=== PATIENT | female | born 1950 | race Two or more races ===

== ENCOUNTER 2022-05-29 14:35 | Emergency (ER) | payer MEDICARE, OTHER ==
[~2022-05-29] VITALS: Ht 152.4 cm; Wt 79.4 kg
--- NOTE | 2022-05-29 15:32 | NUR ---
TO ER 9,NO APPARENT CHANGE IN CONDITION
--- NOTE | 2022-05-29 16:10 | NUR ---
SEEN BY DR. MARSHALL
[2022-05-29] MEDS ORDERED: FUROSEMIDE 40 MG/4 ML VIAL IV ONE (16:30)
--- NOTE | 2022-05-29 16:39 | NUR ---
C/O SWALLEN IN LOWER EXTRAMITY
--- NOTE | 2022-05-29 16:40 | NUR ---
BLOOD DROW BY LAB TACH
[2022-05-29] MEDS ORDERED: FUROSEMIDE 40 MG/4 ML VIAL ONE (17:12)
[2022-05-29 17:19] LABS: BASOPHILS % (AUTO) 0.4 % (0.0-2.0); EOSINOPHILS % (AUTO) 0.5 % (0.0-6.0); HEMATOCRIT 43 % (33-45); HEMOGLOBIN 14.3 g/dL (11.5-14.8); LYMPHOCYTES # (AUTO) 2.1 K/uL (0.8-4.8); LYMPHOCYTES % (AUTO) 24.1 % (20.0-44.0); MEAN CORPUSCULAR HGB CONC 33 g/dl (31.0-36.0); MEAN CORPUSCULAR VOLUME 86 fL (82-100); MONOCYTES # (AUTO) 0.6 K/uL (0.1-1.30); MONOCYTES % (AUTO) 7.1 % (2.0-12.0); NEUTROPHILS # (AUTO) 5.9 K/uL (1.8-8.9); NEUTROPHILS % (AUTO) 67.9 % (43.0-81.0); PLATELET COUNT (AUTO) 294 K/uL (150-450); RED BLOOD CELL COUNT(AUTO) 5.03 MIL/uL (4.0-5.2); WHITE BLOOD COUNT (AUTO) 8.7 K/uL (4.3-11.0)
--- NOTE | 2022-05-29 17:39 | NUR ---
UA SENT TO LAB
[2022-05-29 17:40] LABS: CALCIUM, SERUM 10.3 mg/dL (8.5-10.1); POTASSIUM 3.1 mmol/L (3.5-5.1)
[2022-05-29 17:56] LABS: ALBUMIN 2.7 g/dL (3.4-5.0); BILIRUBIN,TOTAL 0.4 mg/dL (0.2-1.0); TOTAL PROTEIN, SERUM 6.5 g/dL (6.4-8.2)
[2022-05-29 18:32] LABS: BILIRUBIN,URINE NEGATIVE (NEGATIVE); COLOR,URINE YELLOW (YELLOW); LEUKOCYTE ESTERASE ,URINE NEGATIVE (NEGATIVE); NITRITE, URINE NEGATIVE (NEGATIVE); PROTEIN,URINE 3+ mg/dl (NEGATIVE); UGLUCOSE NEGATIVE (NEGATIVE); UROBILINOGEN,URINE 0.2 EU/dL (0.2)
--- NOTE | 2022-05-29 18:45 | NUR ---
PT VODING FREELY X 2 DINESS ANY BLAADER DISTENTION
--- NOTE | 2022-05-29 18:55 | NUR ---
BALDDER SCAN DONE 48 ML RESDULE
--- NOTE | 2022-05-29 19:25 | NUR ---
HAND OFF ROMERO HORNE
--- NOTE | 2022-05-29 19:31 | NUR ---
DR. MARSHALL AT BEDSIDE FOR EVAL.
[2022-05-29] MEDS ORDERED: FURO-144 PO (19:44)
[2022-05-29 19:59] LABS: BACTERIA,URINE RARE /HPF (None Seen); RBC,URINE 21-50 /HPF (0-2); WBC,URINE 0-2 /HPF (0-3)
[2022-05-29 20:04] VITALS: BP 160/85
--- NOTE | 2022-05-29 20:04 | NUR ---
IV removed. Catheter intact and site benign. Pressure and 4x4 applied to site. No bleeding noted.
--- NOTE | 2022-05-29 20:04 | NUR ---
Patient discharged to home in stable condition. Written and verbal after care instructions given. Patient verbalizes understanding of instruction.
== END 2022-05-29 20:05 | disposition home or self-care (01) ==
LOC: ER 14:47
DX: I73.9 Peripheral vascular disease, unspecified (principal); E88.09 Other disorders of plasma-protein metabolism, not elsewhere classified; I10 Essential (primary) hypertension; E78.5 Hyperlipidemia, unspecified; Z98.890 Other specified postprocedural states; Z79.899 Other long term (current) drug therapy
CPT/HCPCS: 99285; 96374; 85025; 81001; 36415; 80053; 83880; J1940

== ENCOUNTER 2023-06-01 10:00 | Inpatient (IN) | payer MEDICARE, OTHER ==
[~2023-06-01] VITALS: Ht 162.6 cm; Wt 74.8 kg
[~2023-06-01 10:00] MED LIST: FURO-144 PO
[2023-06-01 10:57] LABS: BASOPHILS # (AUTO) 0.2 K/uL (0.0-0.2); BASOPHILS % (AUTO) 2.4 % (0.0-2.0); EOSINOPHILS # (AUTO) 0.1 K/uL (0.0-0.7); EOSINOPHILS % (AUTO) 1.5 % (0.0-6.0); HEMATOCRIT 39 % (33-45); HEMOGLOBIN 12.6 g/dL (11.5-14.8); LYMPHOCYTES # (AUTO) 1.3 K/uL (0.8-4.8); LYMPHOCYTES % (AUTO) 20.8 % (20.0-44.0); MEAN CORPUSCULAR HEMOGLOBIN 30 PG (26.0-33.0); MEAN CORPUSCULAR HGB CONC 32 g/dl (31.0-36.0); MEAN CORPUSCULAR VOLUME 91 fL (82-100); MONOCYTES # (AUTO) 0.4 K/uL (0.1-1.30); NEUTROPHILS # (AUTO) 4.4 K/uL (1.8-8.9); NEUTROPHILS % (AUTO) 69.3 % (43.0-81.0); PLATELET COUNT (AUTO) 324 K/uL (150-450); RED BLOOD CELL COUNT(AUTO) 4.27 MIL/uL (4.0-5.2); RED CELL DISTRIBUTION WIDTH 14.5 % (11.5-15.0); WHITE BLOOD COUNT (AUTO) 6.4 K/uL (4.3-11.0)
[2023-06-01 11:22] LABS: CALCIUM, SERUM 10.1 mg/dL (8.5-10.1); CARBON DIOXIDE 19 mmol/L (21-32); CHLORIDE 106 mmol/L (98-107); CREATININE 2.3 mg/dL (0.6-1.3); GLUCOSE 129 mg/dL (74-106); POTASSIUM 5.6 mmol/L (3.5-5.1); SODIUM SERUM 134 mmol/L (136-145); UREA NITROGEN, BLOOD 37 mg/dL (7-18)
[2023-06-01] MEDS ORDERED: CHOL500052 PO (12:43)
[2023-06-01] MEDS ORDERED: ALLO100T PO (12:43)
[2023-06-01] MEDS ORDERED: PROP10TA10 PO (12:43)
[2023-06-01] MEDS ORDERED: ICOS1CAP PO (12:43)
[2023-06-01] MEDS ORDERED: CAPT25TA3 PO (12:43)
[2023-06-01] MEDS ORDERED: EVOL140P3 SQ (12:43)
[2023-06-01] MEDS ORDERED: CLON0.1T PO (12:43)
[2023-06-01] MEDS ORDERED: LEVO125T PO (12:43)
[2023-06-01] MEDS ORDERED: METO-357 PO (12:43)
[2023-06-01] MEDS ORDERED: HYDR-4076 PO (12:43)
[2023-06-01] MEDS ORDERED: SPIR50TA5 PO (12:43)
[2023-06-01] MEDS ORDERED: LIOT5TAB7 PO (12:43)
[2023-06-01] MEDS ORDERED: MORPHINE SULFATE INJ 2 MG/ML DISP.SYRIN IV PRN (13:30)
[2023-06-01] MEDS ORDERED: PROPRANOLOL HCL 10 MG TABLET PO PRN (13:30)
[2023-06-01] MEDS ORDERED: ONDANSETRON HCL/PF 4 MG/2 ML VIAL IVP PRN (13:30)
[2023-06-01] MEDS ORDERED: hydrALAZINE HCL 25 MG TABLET PO PRN (13:30)
[2023-06-01] MEDS ORDERED: HYDROCODONE/APAP 5/325MG TABLET PO PRN (13:30)
[2023-06-01] MEDS ORDERED: Z GUARD REMEDY 4 OZ OINT TP PRN (13:30)
[2023-06-01] MEDS ORDERED: MAG HYDROX/AL HYDROX/SIMETH 30 ML UDC PO PRN (13:30)
[2023-06-01] MEDS ORDERED: ZOLPIDEM TARTRATE 5 MG TABLET PO PRN (13:30)
[2023-06-01] MEDS ORDERED: MAGNESIUM HYDROXIDE 30 ML UDC PO PRN (13:30)
[2023-06-01] MEDS: ASPIRIN 81 MG TAB.CHEW PO ONE (14:30)
[2023-06-01] MEDS ORDERED: ASPIRIN 81 MG TAB.CHEW ONE (14:36)
[2023-06-01 16:00] VITALS: BP 159/102; TEMP 98.5; O2SAT 99
[2023-06-01 20:00] VITALS: BP 150/89; TEMP 98.2
[2023-06-01] MEDS: ACETAMINOPHEN 325 MG TABLET PO PRN (20:36)
[2023-06-02] VITALS: BP 144/87; TEMP 97.8
[2023-06-02 04:00] VITALS: BP 142/70; TEMP 98
[2023-06-02 07:12] LABS: BASOPHILS % (AUTO) 0.6 % (0.0-2.0); EOSINOPHILS # (AUTO) 0.2 K/uL (0.0-0.7); EOSINOPHILS % (AUTO) 4.2 % (0.0-6.0); HEMATOCRIT 36 % (33-45); HEMOGLOBIN 11.9 g/dL (11.5-14.8); LYMPHOCYTES # (AUTO) 1.9 K/uL (0.8-4.8); LYMPHOCYTES % (AUTO) 34.6 % (20.0-44.0); MEAN CORPUSCULAR HEMOGLOBIN 30 PG (26.0-33.0); MEAN CORPUSCULAR HGB CONC 33 g/dl (31.0-36.0); MEAN CORPUSCULAR VOLUME 92 fL (82-100); MONOCYTES # (AUTO) 0.5 K/uL (0.1-1.30); MONOCYTES % (AUTO) 8.3 % (2.0-12.0); NEUTROPHILS # (AUTO) 2.9 K/uL (1.8-8.9); NEUTROPHILS % (AUTO) 52.3 % (43.0-81.0); PLATELET COUNT (AUTO) 274 K/uL (150-450); RED BLOOD CELL COUNT(AUTO) 3.96 MIL/uL (4.0-5.2); RED CELL DISTRIBUTION WIDTH 14.1 % (11.5-15.0); WHITE BLOOD COUNT (AUTO) 5.6 K/uL (4.3-11.0)
[2023-06-02 07:45] LABS: CALCIUM, SERUM 10.2 mg/dL (8.5-10.1); CARBON DIOXIDE 21 mmol/L (21-32); CHLORIDE 109 mmol/L (98-107); GLUCOSE 89 mg/dL (74-106); MAGNESIUM 2.1 mg/dL (1.8-2.4); PHOSPHORUS 3.8 mg/dL (2.5-4.9); POTASSIUM 6.1 mmol/L (3.5-5.1); SODIUM SERUM 136 mmol/L (136-145); UREA NITROGEN, BLOOD 38 mg/dL (7-18)
[2023-06-02 07:55] LABS: CHOLESTEROL 210 mg/dL (<200); HDL CHOLESTEROL 51 mg/dL (40-60); THYROID STIMULATING HORMONE 6.837 uIU/mL (0.358-3.74); TRIGLYCERIDES 203 mg/dL (30-150)
[2023-06-02 08:00] VITALS: BP 180/104; TEMP 98.4; O2SAT 99
[2023-06-02] MEDS: PANTOPRAZOLE 40 MG TABLET.DR PO SCH (08:21)
[2023-06-02] MEDS: LEVOTHYROXINE SODIUM 125 MCG TABLET PO SCH (08:21)
[2023-06-02 08:23] LABS: LDL 103 mg/dL (0-99)
[2023-06-02] MEDS: ASPIRIN 81 MG TAB.CHEW PO SCH (08:26)
[2023-06-02] MEDS: ERGOCALCIFEROL (VITAMIN D 2) 50,000 UNIT CAPSULE PO SCH (08:27)
[2023-06-02] MEDS: LIOTHYRONINE SODIUM (5 MCG/TA 5 MCG TABLET PO SCH (08:27)
[2023-06-02] MEDS: ALLOPURINOL 100 MG TABLET PO SCH (08:27)
[2023-06-02] MEDS: METOPROLOL SUCCINATE 50 MG TAB.SR.24H PO SCH ×2 (08:34→17:18)
[2023-06-02] MEDS: CLONIDINE HCL 0.1 MG TABLET PO SCH (08:34)
[2023-06-02 12:00] VITALS: BP 124/87; TEMP 98.4; O2SAT 100
[2023-06-02] MEDS: ISOSORBIDE DINITRATE (20MG) 20 MG TABLET PO SCH (12:24)
[2023-06-02] MEDS: hydrALAZINE HCL 50 MG TABLET PO SCH (12:25)
[2023-06-02] MEDS: INSULIN REGULAR, HUMAN 100 UNIT/ML 3 ML VIAL IV ONE (13:53)
[2023-06-02] MEDS: SODIUM POLYSTYRENE SULFONATE 15 G/60 ML BOTTLE PO ONE (13:54)
[2023-06-02] MEDS: DEXTROSE 50%-WATER 50 ML DISP.SYRIN IVP ONE (13:54)
[2023-06-02 16:00] VITALS: BP 119/73; TEMP 98.4; O2SAT 97
[2023-06-02 20:00] VITALS: BP 112/98; TEMP 98; O2SAT 96
[2023-06-02 20:35] LABS: BASOPHILS % (AUTO) 0.3 % (0.0-2.0); EOSINOPHILS # (AUTO) 0.2 K/uL (0.0-0.7); EOSINOPHILS % (AUTO) 2.7 % (0.0-6.0); HEMATOCRIT 34 % (33-45); HEMOGLOBIN 11.3 g/dL (11.5-14.8); LYMPHOCYTES # (AUTO) 2.2 K/uL (0.8-4.8); LYMPHOCYTES % (AUTO) 26.3 % (20.0-44.0); MEAN CORPUSCULAR HEMOGLOBIN 30 PG (26.0-33.0); MEAN CORPUSCULAR HGB CONC 33 g/dl (31.0-36.0); MEAN CORPUSCULAR VOLUME 92 fL (82-100); MONOCYTES # (AUTO) 0.7 K/uL (0.1-1.30); MONOCYTES % (AUTO) 7.8 % (2.0-12.0); NEUTROPHILS # (AUTO) 5.3 K/uL (1.8-8.9); NEUTROPHILS % (AUTO) 62.9 % (43.0-81.0); PLATELET COUNT (AUTO) 279 K/uL (150-450); RED BLOOD CELL COUNT(AUTO) 3.75 MIL/uL (4.0-5.2); RED CELL DISTRIBUTION WIDTH 14.3 % (11.5-15.0); WHITE BLOOD COUNT (AUTO) 8.4 K/uL (4.3-11.0)
[2023-06-02 20:53] LABS: ALANINE AMINOTRANSFERASE 14 U/L (12-78); ALKALINE PHOSPHATASE 105 U/L (46-116); ASPARTATE AMINOTRANSFERASE 14 U/L (15-37); BILIRUBIN,TOTAL 0.2 mg/dL (0.2-1.0); CALCIUM, SERUM 9.7 mg/dL (8.5-10.1); CARBON DIOXIDE 20 mmol/L (21-32); CHLORIDE 108 mmol/L (98-107); CREATININE 2.1 mg/dL (0.6-1.3); GLUCOSE 95 mg/dL (74-106); PHOSPHORUS 4.4 mg/dL (2.5-4.9); POTASSIUM 5.6 mmol/L (3.5-5.1); SODIUM SERUM 136 mmol/L (136-145); TOTAL PROTEIN, SERUM 4.9 g/dL (6.4-8.2); UREA NITROGEN, BLOOD 40 mg/dL (7-18)
[2023-06-03] VITALS: BP 110/71; TEMP 97.6; O2SAT 94
[2023-06-03 04:00] VITALS: BP 132/68; TEMP 98.1; O2SAT 97
[2023-06-03 07:15] LABS: BASOPHILS % (AUTO) 0.3 % (0.0-2.0); EOSINOPHILS # (AUTO) 0.2 K/uL (0.0-0.7); EOSINOPHILS % (AUTO) 2.3 % (0.0-6.0); HEMATOCRIT 35 % (33-45); HEMOGLOBIN 11.5 g/dL (11.5-14.8); LYMPHOCYTES # (AUTO) 2.4 K/uL (0.8-4.8); LYMPHOCYTES % (AUTO) 26.7 % (20.0-44.0); MEAN CORPUSCULAR HEMOGLOBIN 30 PG (26.0-33.0); MEAN CORPUSCULAR HGB CONC 33 g/dl (31.0-36.0); MEAN CORPUSCULAR VOLUME 92 fL (82-100); MONOCYTES # (AUTO) 0.7 K/uL (0.1-1.30); NEUTROPHILS # (AUTO) 5.7 K/uL (1.8-8.9); NEUTROPHILS % (AUTO) 62.7 % (43.0-81.0); PLATELET COUNT (AUTO) 292 K/uL (150-450); RED BLOOD CELL COUNT(AUTO) 3.84 MIL/uL (4.0-5.2); RED CELL DISTRIBUTION WIDTH 14.4 % (11.5-15.0); WHITE BLOOD COUNT (AUTO) 9.1 K/uL (4.3-11.0)
[2023-06-03] MEDS ORDERED: LEVOTHYROXINE SODIUM 125 MCG TABLET PO SCH (07:30)
[2023-06-03 07:53] LABS: ALANINE AMINOTRANSFERASE 12 U/L (12-78); ALBUMIN 2.1 g/dL (3.4-5.0); ALKALINE PHOSPHATASE 111 U/L (46-116); ASPARTATE AMINOTRANSFERASE 14 U/L (15-37); BILIRUBIN,TOTAL 0.2 mg/dL (0.2-1.0); CALCIUM, SERUM 10.2 mg/dL (8.5-10.1); CARBON DIOXIDE 20 mmol/L (21-32); CHLORIDE 107 mmol/L (98-107); GLUCOSE 95 mg/dL (74-106); MAGNESIUM 2.1 mg/dL (1.8-2.4); PHOSPHORUS 3.8 mg/dL (2.5-4.9); POTASSIUM 5.3 mmol/L (3.5-5.1); SODIUM SERUM 136 mmol/L (136-145); TOTAL PROTEIN, SERUM 5.2 g/dL (6.4-8.2); UREA NITROGEN, BLOOD 40 mg/dL (7-18)
[2023-06-03 08:00] VITALS: BP 164/100; TEMP 97.7; O2SAT 99
[2023-06-03] MEDS: LEVOTHYROXINE SODIUM 125 MCG TABLET PO SCH (08:03)
[2023-06-03 08:04] LABS: CREATINE KINASE, TOTAL 32 U/L (26-192)
[2023-06-03] MEDS: METOPROLOL SUCCINATE 50 MG TAB.SR.24H PO SCH (09:00)
[2023-06-03 12:00] VITALS: BP 130/78; TEMP 97.7; O2SAT 99
[2023-06-03 13:07] VITALS: BP 130/78
[2023-06-03] MEDS: SODIUM POLYSTYRENE SULFONATE 15 G/60 ML BOTTLE PO ONE (14:07)
[2023-06-05 05:11] LABS: *SPE A/G RATIO 0.9 (0.7-1.7); *SPE ALBUMIN 2.2 g/dL (2.9-4.4); *SPE ALPHA-1-GLOBULIN 0.3 g/dL (0.0-0.4); *SPE ALPHA-2-GLOBULIN 0.9 g/dL (0.4-1.0); *SPE BETA GLOBULIN 0.9 g/dL (0.7-1.3); *SPE GLOBULIN, TOTAL 2.4 g/dL (2.2-3.9); *SPE M-SPIKE Not Observed g/dL (Not Observed); *SPE PROTEIN TOTAL 4.6 g/dL (6.0-8.5); *SPEGAMMA GLOBULIN 0.4 g/dL (0.4-1.8); PTH, INTACT 111 pg/mL (15-65)
== END 2023-06-03 14:42 | disposition home or self-care (01) | DRG 280 ==
LOC: ER 10:00 → TELE1 15:28
PROVIDERS: ADMIT Nurse Practitioner Acute Care; ATTEND Nurse Practitioner Acute Care
DX: I21.4 Non-ST elevation (NSTEMI) myocardial infarction (principal); N17.0 Acute kidney failure with tubular necrosis; N25.81 Secondary hyperparathyroidism of renal origin; E03.9 Hypothyroidism, unspecified; E11.22 Type 2 diabetes mellitus with diabetic chronic kidney disease; E78.5 Hyperlipidemia, unspecified; I12.9 Hypertensive chronic kidney disease with stage 1 through stage 4 chronic kidney disease, or unspecified chronic kidney disease; N18.9 Chronic kidney disease, unspecified; Z98.891 History of uterine scar from previous surgery; Z79.899 Other long term (current) drug therapy; Z79.890 Hormone replacement therapy; E87.5 Hyperkalemia; E66.9 Obesity, unspecified; Z87.441 Personal history of nephrotic syndrome; Z87.448 Personal history of other diseases of urinary system; Z68.28 Body mass index [BMI] 28.0-28.9, adult; V89.2XXA Person injured in unspecified motor-vehicle accident, traffic, initial encounter; Y92.9 Unspecified place or not applicable; T44.5X5A Adverse effect of predominantly beta-adrenoreceptor agonists, initial encounter; D35.00 Benign neoplasm of unspecified adrenal gland; N25.0 Renal osteodystrophy
CPT/HCPCS: 36415; 71045-TC; 76770-TC; 80048-TC; 80053-TC; 80061-TC; 82550-TC; 82962-TC; 83735-TC; 83970; 84100-TC; 84155; 84165; 84439-TC; 84443-TC; 84481; 84484-TC; 85025-TC; 93307-TC; G0378; J1815

== ENCOUNTER 2023-08-21 09:02 | Inpatient (IN) | payer MEDICARE, OTHER ==
[~2023-08-21] VITALS: Ht 152.4 cm; Wt 72.6 kg
[~2023-08-21 09:02] MED LIST changes: +ALLO100T PO; +CHOL500052 PO; +CLON0.1T PO; +EVOL140P3 SQ; -FURO-144 PO; +HYDR-4076 PO; +ICOS1CAP PO; +LEVO125T PO; +LIOT5TAB7 PO; +METO-357 PO; +PROP10TA10 PO
[2023-08-21 09:30] LABS: BASOPHILS % (AUTO) 0.2 % (0.0-2.0); EOSINOPHILS # (AUTO) 0.1 K/uL (0.0-0.7); EOSINOPHILS % (AUTO) 1.5 % (0.0-6.0); HEMATOCRIT 38 % (33-45); HEMOGLOBIN 12.5 g/dL (11.5-14.8); LYMPHOCYTES # (AUTO) 1.9 K/uL (0.8-4.8); LYMPHOCYTES % (AUTO) 20.7 % (20.0-44.0); MEAN CORPUSCULAR HEMOGLOBIN 30 PG (26.0-33.0); MEAN CORPUSCULAR HGB CONC 33 g/dl (31.0-36.0); MEAN CORPUSCULAR VOLUME 91 fL (82-100); MONOCYTES # (AUTO) 0.5 K/uL (0.1-1.30); MONOCYTES % (AUTO) 5.8 % (2.0-12.0); NEUTROPHILS # (AUTO) 6.5 K/uL (1.8-8.9); NEUTROPHILS % (AUTO) 71.8 % (43.0-81.0); PLATELET COUNT (AUTO) 339 K/uL (150-450); RED BLOOD CELL COUNT(AUTO) 4.21 MIL/uL (4.0-5.2); RED CELL DISTRIBUTION WIDTH 14.7 % (11.5-15.0)
[2023-08-21 10:01] LABS: ALANINE AMINOTRANSFERASE 26 U/L (12-78); ASPARTATE AMINOTRANSFERASE 20 U/L (15-37); BILIRUBIN,DIRECT 0.1 mg/dL (0.0-0.2); BILIRUBIN,TOTAL 0.5 mg/dL (0.2-1.0); CALCIUM, SERUM 10.1 mg/dL (8.5-10.1); CARBON DIOXIDE 22 mmol/L (21-32); CHLORIDE 107 mmol/L (98-107); CREATININE 2.9 mg/dL (0.6-1.3); GLUCOSE 87 mg/dL (74-106); SODIUM SERUM 133 mmol/L (136-145); TOTAL PROTEIN, SERUM 5.9 g/dL (6.4-8.2); UREA NITROGEN, BLOOD 42 mg/dL (7-18)
[2023-08-21 10:03] LABS: POTASSIUM 6.7 mmol/L (3.5-5.1)
[2023-08-21] MEDS ORDERED: FUROSEMIDE 20 MG/2 ML VIAL ONE (10:18)
[2023-08-21] MEDS ORDERED: SODIUM BICARBONATE SYR 50 MEQ/50 ML DISP.SYRIN ONE (10:19)
[2023-08-21] MEDS ORDERED: DEXTROSE 50%-WATER 50 ML DISP.SYRIN ONE (10:19)
[2023-08-21] MEDS ORDERED: SODIUM POLYSTYRENE SULFONATE 15 G/60 ML BOTTLE ONE (10:19)
[2023-08-21] MEDS ORDERED: INSULIN REGULAR, HUMAN 100 UNIT/ML 10 ML VIAL ONE (10:20)
[2023-08-21 10:23] LABS: ALBUMIN 2.2 g/dL (3.4-5.0); ALKALINE PHOSPHATASE 125 U/L (46-116)
[2023-08-21] MEDS: IV NS 0.9% 1,000 ML BAG IV ONE (10:26)
[2023-08-21] MEDS ORDERED: ALBUTEROL FS 2.5 MG/3 ML VIAL.NEB ONE (10:26)
[2023-08-21] MEDS: INSULIN REGULAR, HUMAN 100 UNIT/ML 10 ML VIAL IV ONE (10:32)
[2023-08-21 10:35] VITALS: O2SAT 99
[2023-08-21] MEDS: ALBUTEROL FS 2.5 MG/3 ML VIAL.NEB NEB ONE (10:35)
[2023-08-21] MEDS: DEXTROSE 50%-WATER 50 ML DISP.SYRIN IV ONE ×2 (10:35→10:41)
[2023-08-21] MEDS ORDERED: MAGN400T30 PO (10:36)
[2023-08-21] MEDS ORDERED: LEVO100T PO (10:36)
[2023-08-21] MEDS ORDERED: ATOR40TA PO (10:36)
[2023-08-21] MEDS ORDERED: AMLO5TAB4 PO (10:36)
[2023-08-21] MEDS ORDERED: SPIR50TA PO (10:36)
[2023-08-21] MEDS: SODIUM BICARBONATE SYR 50 MEQ/50 ML DISP.SYRIN IV ONE (10:40)
[2023-08-21] MEDS: FUROSEMIDE 40 MG/4 ML VIAL IV ONE (10:45)
[2023-08-21 10:46] VITALS: O2SAT 99
[2023-08-21] MEDS: SODIUM POLYSTYRENE SULFONATE 15 G/60 ML BOTTLE PO ONE (10:47)
[2023-08-21] MEDS ORDERED: MAG HYDROX/AL HYDROX/SIMETH 30 ML UDC PO PRN (12:30)
[2023-08-21] MEDS ORDERED: ZOLPIDEM TARTRATE 5 MG TABLET PO PRN (12:30)
[2023-08-21] MEDS ORDERED: Z GUARD REMEDY 4 OZ OINT TP PRN (12:30)
[2023-08-21] MEDS ORDERED: ONDANSETRON HCL/PF 4 MG/2 ML VIAL IVP PRN (12:30)
[2023-08-21] MEDS ORDERED: ACETAMINOPHEN 325 MG TABLET PO PRN (12:30)
[2023-08-21] MEDS ORDERED: MAGNESIUM HYDROXIDE 30 ML UDC PO PRN (12:30)
[2023-08-21] MEDS: IV NS 0.9% 1,000 ML IV SCH (13:09)
[2023-08-21 13:21] VITALS: BP 153/91; TEMP 97.7; O2SAT 98
[2023-08-21 16:00] VITALS: BP 143/94; TEMP 98.4; O2SAT 98
[2023-08-21 20:00] VITALS: BP 149/92; TEMP 98.2; O2SAT 98
[2023-08-22] VITALS: BP 158/96; TEMP 98.1; O2SAT 98
[2023-08-22 04:00] VITALS: BP 154/94; TEMP 97.7; O2SAT 97
[2023-08-22 07:11] LABS: CHOLESTEROL 115 mg/dL (<200); HDL CHOLESTEROL 66 mg/dL (40-60); LDL 35 mg/dL (0-99); TRIGLYCERIDES 97 mg/dL (30-150)
[2023-08-22 07:30] LABS: CARBON DIOXIDE 19 mmol/L (21-32); CHLORIDE 110 mmol/L (98-107); CREATININE 2.5 mg/dL (0.6-1.3); GLUCOSE 77 mg/dL (74-106); MAGNESIUM 2.3 mg/dL (1.8-2.4); PHOSPHORUS 4.4 mg/dL (2.5-4.9); POTASSIUM 5.1 mmol/L (3.5-5.1); SODIUM SERUM 136 mmol/L (136-145); UREA NITROGEN, BLOOD 34 mg/dL (7-18)
[2023-08-22] MEDS: LEVOTHYROXINE SODIUM 100 MCG TABLET PO SCH (07:32)
[2023-08-22 07:33] LABS: BASOPHILS % (AUTO) 0.5 % (0.0-2.0); EOSINOPHILS # (AUTO) 0.2 K/uL (0.0-0.7); EOSINOPHILS % (AUTO) 2.2 % (0.0-6.0); HEMATOCRIT 33 % (33-45); HEMOGLOBIN 10.9 g/dL (11.5-14.8); LYMPHOCYTES # (AUTO) 2.6 K/uL (0.8-4.8); MEAN CORPUSCULAR HEMOGLOBIN 31 PG (26.0-33.0); MEAN CORPUSCULAR HGB CONC 33 g/dl (31.0-36.0); MEAN CORPUSCULAR VOLUME 93 fL (82-100); MONOCYTES # (AUTO) 0.5 K/uL (0.1-1.30); MONOCYTES % (AUTO) 6.6 % (2.0-12.0); NEUTROPHILS # (AUTO) 4.4 K/uL (1.8-8.9); NEUTROPHILS % (AUTO) 56.7 % (43.0-81.0); PLATELET COUNT (AUTO) 279 K/uL (150-450); RED BLOOD CELL COUNT(AUTO) 3.57 MIL/uL (4.0-5.2); RED CELL DISTRIBUTION WIDTH 14.8 % (11.5-15.0); WHITE BLOOD COUNT (AUTO) 7.7 K/uL (4.3-11.0)
[2023-08-22] MEDS: LIOTHYRONINE SODIUM (5 MCG/TA 5 MCG TABLET PO SCH (08:19)
[2023-08-22] MEDS: ATORVASTATIN 40 MG TABLET PO SCH (08:19)
[2023-08-22] MEDS: METOPROLOL SUCCINATE 50 MG TAB.SR.24H PO SCH (08:19)
[2023-08-22] MEDS: MAGNESIUM OXIDE 400 MG TABLET PO SCH (08:19)
[2023-08-22] MEDS: ALLOPURINOL 100 MG TABLET PO SCH (08:20)
[2023-08-22] MEDS: AMLODIPINE BESYLATE 5 MG TABLET PO SCH (08:20)
[2023-08-22 09:30] VITALS: BP 154/91; TEMP 97.7; O2SAT 97
[2023-08-22 16:00] VITALS: BP 159/99; TEMP 97.7; O2SAT 100
[2023-08-22 20:00] VITALS: BP 157/86; TEMP 98.2; O2SAT 98
[2023-08-22 20:22] LABS: APPEARANCE,URINE SLIGHTLY CLOUDY (CLEAR); BILIRUBIN,URINE NEGATIVE (NEGATIVE); BLOOD, URINE TRACE-INTA Ery/uL (NEGATIVE); COLOR,URINE YELLOW (YELLOW); KETONES,URINE NEGATIVE (NEGATIVE); LEUKOCYTE ESTERASE ,URINE TRACE (NEGATIVE); NITRITE, URINE NEGATIVE (NEGATIVE); PROTEIN,URINE 3+ mg/dl (NEGATIVE); UGLUCOSE NEGATIVE (NEGATIVE); UROBILINOGEN,URINE 0.2 EU/dL (0.2)
[2023-08-22 20:31] LABS: CREATININE, URINE 40.8 MG/DL (30.0-125.0); URINE TOTAL PROTEIN 602.4 mg/dL (0-11.9)
[2023-08-22 20:42] LABS: ADD URINE CULTURE YES; BACTERIA,URINE Many /HPF (None Seen); SQUAMOUS EPITHELIAL CELL,UR Few /HPF (None Seen)
[2023-08-22 20:54] LABS: EOSINOPHIL,URINE None Seen
[2023-08-23] VITALS: BP 154/87; TEMP 97.9; O2SAT 97
[2023-08-23 05:00] VITALS: BP 146/91; TEMP 98.1; O2SAT 97
[2023-08-23 07:07] LABS: BASOPHILS % (AUTO) 0.3 % (0.0-2.0); EOSINOPHILS # (AUTO) 0.2 K/uL (0.0-0.7); HEMATOCRIT 36 % (33-45); HEMOGLOBIN 11.6 g/dL (11.5-14.8); LYMPHOCYTES # (AUTO) 1.9 K/uL (0.8-4.8); LYMPHOCYTES % (AUTO) 28.3 % (20.0-44.0); MEAN CORPUSCULAR HEMOGLOBIN 30 PG (26.0-33.0); MEAN CORPUSCULAR HGB CONC 33 g/dl (31.0-36.0); MEAN CORPUSCULAR VOLUME 92 fL (82-100); MONOCYTES # (AUTO) 0.5 K/uL (0.1-1.30); MONOCYTES % (AUTO) 7.5 % (2.0-12.0); NEUTROPHILS # (AUTO) 4.2 K/uL (1.8-8.9); NEUTROPHILS % (AUTO) 60.9 % (43.0-81.0); PLATELET COUNT (AUTO) 299 K/uL (150-450); RED BLOOD CELL COUNT(AUTO) 3.88 MIL/uL (4.0-5.2); RED CELL DISTRIBUTION WIDTH 14.7 % (11.5-15.0); WHITE BLOOD COUNT (AUTO) 6.9 K/uL (4.3-11.0)
[2023-08-23 07:22] LABS: CREATINE KINASE, TOTAL 39 U/L (26-192)
[2023-08-23 08:29] VITALS: BP 154/90; TEMP 98.2; O2SAT 96
[2023-08-23 08:30] LABS: ALANINE AMINOTRANSFERASE 17 U/L (12-78); ALBUMIN 1.8 g/dL (3.4-5.0); ALKALINE PHOSPHATASE 112 U/L (46-116); ASPARTATE AMINOTRANSFERASE 10 U/L (15-37); BILIRUBIN,TOTAL 0.4 mg/dL (0.2-1.0); CALCIUM, SERUM 9.9 mg/dL (8.5-10.1); CARBON DIOXIDE 20 mmol/L (21-32); CHLORIDE 110 mmol/L (98-107); CREATININE 2.2 mg/dL (0.6-1.3); GLUCOSE 87 mg/dL (74-106); MAGNESIUM 2.2 mg/dL (1.8-2.4); POTASSIUM 4.7 mmol/L (3.5-5.1); SODIUM SERUM 138 mmol/L (136-145); TOTAL PROTEIN, SERUM 5.1 g/dL (6.4-8.2); UREA NITROGEN, BLOOD 30 mg/dL (7-18)
[2023-08-23 08:46] VITALS: BP 154/90
[2023-08-23] MEDS: CEPHALEXIN MONOHYDRATE 500 MG CAPSULE PO SCH (09:47)
[2023-08-23] MEDS ORDERED: CEPH-570 PO (12:09)
[2023-08-24 08:11] LABS: PTH, INTACT 108 pg/mL (15-65)
[2023-08-24 12:10] LABS: *SPE ALBUMIN 2.3 g/dL (2.9-4.4); *SPE ALPHA-1-GLOBULIN 0.3 g/dL (0.0-0.4); *SPE ALPHA-2-GLOBULIN 0.9 g/dL (0.4-1.0); *SPE BETA GLOBULIN 0.8 g/dL (0.7-1.3); *SPE GLOBULIN, TOTAL 2.2 g/dL (2.2-3.9); *SPE M-SPIKE Not Observed g/dL (Not Observed); *SPE PROTEIN TOTAL 4.5 g/dL (6.0-8.5); *SPEGAMMA GLOBULIN 0.2 g/dL (0.4-1.8)
== END 2023-08-23 17:00 | disposition home or self-care (01) | DRG 699 ==
LOC: ER 09:08 → TELE 11:45
PROVIDERS: ADMIT Nurse Practitioner Acute Care; ATTEND Nurse Practitioner Acute Care
DX: N04.9 Nephrotic syndrome with unspecified morphologic changes (principal); E44.0 Moderate protein-calorie malnutrition; E87.1 Hypo-osmolality and hyponatremia; E87.20 Acidosis, unspecified; N39.0 Urinary tract infection, site not specified; N17.9 Acute kidney failure, unspecified; E87.5 Hyperkalemia; N18.4 Chronic kidney disease, stage 4 (severe); T50.0X5A Adverse effect of mineralocorticoids and their antagonists, initial encounter; Y92.89 Other specified places as the place of occurrence of the external cause; Z98.891 History of uterine scar from previous surgery; Z79.890 Hormone replacement therapy; Z79.899 Other long term (current) drug therapy; Z82.49 Family history of ischemic heart disease and other diseases of the circulatory system; E78.5 Hyperlipidemia, unspecified; E03.9 Hypothyroidism, unspecified; Z85.528 Personal history of other malignant neoplasm of kidney; R74.8 Abnormal levels of other serum enzymes; M89.8X9 Other specified disorders of bone, unspecified site; E88.09 Other disorders of plasma-protein metabolism, not elsewhere classified
CPT/HCPCS: 36415; 76770-TC; 80048-TC; 80053-TC; 80061-TC; 80076-TC; 81001; 82550-TC; 82570-TC; 83735-TC; 83970; 84100-TC; 84155; 84165; 84244; 84300-TC; 85025-TC; 87086-TC; A4223; G0378; J1815; J1940; J3490; J7030

== ENCOUNTER 2025-03-25 11:55 | Inpatient (IN) | payer MEDICARE, OTHER ==
[~2025-03-25] VITALS: Ht 157.5 cm; Wt 76.2 kg
[~2025-03-25 11:55] MED LIST changes: +AMLO5TAB4 PO; +ATOR40TA PO; +CEPH-570 PO; -CLON0.1T PO; -HYDR-4076 PO; -ICOS1CAP PO; +LEVO100T PO; -LEVO125T PO; +MAGN400T30 PO; -PROP10TA10 PO
[2025-03-25 13:11] LABS: PLATELET COUNT (AUTO) 229 K/uL (150-450); RED BLOOD CELL COUNT(AUTO) 2.91 MIL/uL (4.0-5.2); RED CELL DISTRIBUTION WIDTH 14.2 % (11.5-15.0); WHITE BLOOD COUNT (AUTO) 5.5 K/uL (4.3-11.0)
[2025-03-25 13:14] LABS: CALCIUM, SERUM 9.1 mg/dL (8.5-10.1); CREATININE 3.0 mg/dL (0.6-1.3); SODIUM SERUM 139 mmol/L (136-145); UREA NITROGEN, BLOOD 41 mg/dL (7-18)
[2025-03-25 13:32] LABS: NT-PRO BNP 5087 pg/mL (0-125)
[2025-03-25] MEDS ORDERED: SPIR25TA6 PO (14:19)
[2025-03-25] MEDS ORDERED: MONT10TA22 PO (14:19)
[2025-03-25] MEDS ORDERED: BUME1TAB8 PO (14:19)
[2025-03-25] MEDS ORDERED: CLON0.1T PO (14:19)
[2025-03-25] MEDS ORDERED: ALIR75PE SQ (14:19)
[2025-03-25] MEDS ORDERED: VITAMIN D2 PO (14:19)
[2025-03-25] MEDS ORDERED: METO50TA16 PO (14:19)
[2025-03-25] MEDS ORDERED: LABE200T5 PO (14:19)
[2025-03-25] MEDS: CLONIDINE HCL 0.1 MG TABLET PO PRN (17:42)
[2025-03-25 18:11] VITALS: BP 182/92; TEMP 98.1; O2SAT 96
[2025-03-25 20:00] VITALS: BP 152/84; TEMP 97.5; O2SAT 95
[2025-03-25 20:42] VITALS: BP 152/84; TEMP 97.5; O2SAT 95
[2025-03-25] MEDS ORDERED: MAG HYDROX/AL HYDROX/SIMETH 30 ML UDC PO PRN (23:30)
[2025-03-25] MEDS ORDERED: MAGNESIUM HYDROXIDE 30 ML UDC PO PRN (23:30)
[2025-03-25] MEDS ORDERED: Z GUARD REMEDY 4 OZ OINT TP PRN (23:30)
[2025-03-25] MEDS ORDERED: ONDANSETRON HCL/PF 4 MG/2 ML VIAL IVP PRN (23:30)
[2025-03-26] VITALS (8 sets, daily range): BP systolic 132–176; BP diastolic 76–111; TEMP 97.2–98.1; O2SAT 94–99
[2025-03-26] MEDS: CLONIDINE HCL 0.1 MG TABLET PO PRN (00:31)
[2025-03-26] MEDS: METOPROLOL TARTRATE 50 MG TABLET PO ONE (05:23)
[2025-03-26 06:56] LABS: PLATELET COUNT (AUTO) 216 K/uL (150-450); RED BLOOD CELL COUNT(AUTO) 2.92 MIL/uL (4.0-5.2); RED CELL DISTRIBUTION WIDTH 14.2 % (11.5-15.0); WHITE BLOOD COUNT (AUTO) 4.9 K/uL (4.3-11.0)
[2025-03-26 07:34] LABS: CALCIUM, SERUM 9.5 mg/dL (8.5-10.1); CREATININE 3.0 mg/dL (0.6-1.3); PHOSPHORUS 4.1 mg/dL (2.5-4.9); SODIUM SERUM 141.0 mmol/L (136-145); UREA NITROGEN, BLOOD 38.0 mg/dL (7-18)
[2025-03-26] MEDS: SPIRONOLACTONE 25 MG TABLET PO SCH (08:50)
[2025-03-26] MEDS: FUROSEMIDE 20 MG/2 ML VIAL IV SCH (08:51)
[2025-03-26] MEDS: LEVOTHYROXINE SODIUM 100 MCG TABLET PO SCH (08:51)
[2025-03-26] MEDS: METOPROLOL TARTRATE 50 MG TABLET PO SCH (08:51)
[2025-03-26 10:47] LABS: LDL 43 mg/dL (0-99)
[2025-03-26] MEDS: ATORVASTATIN 10 MG TABLET PO SCH (11:34)
[2025-03-26] MEDS: NIFEdipine XL (30MG) 30 MG TAB PO SCH (11:34)
[2025-03-26] MEDS: NITROGLYCERIN 30 GM TUBE TP SCH (11:35)
[2025-03-26] MEDS: ALBUTEROL FS 2.5 MG/0.5 ML VIAL.NEB NEB PRN (12:47)
[2025-03-26] MEDS: ACETAMINOPHEN 325 MG TABLET PO PRN (18:25)
[2025-03-26] MEDS: MONTELUKAST SODIUM (10MG) 10 MG TABLET PO SCH (22:08)
[2025-03-27] VITALS (7 sets, daily range): BP systolic 119–141; BP diastolic 63–87; TEMP 98.1–98.2; O2SAT 94–99
[2025-03-27 05:04] LABS: PLATELET COUNT (AUTO) 245 K/uL (150-450); RED BLOOD CELL COUNT(AUTO) 3.22 MIL/uL (4.0-5.2); RED CELL DISTRIBUTION WIDTH 14.5 % (11.5-15.0); WHITE BLOOD COUNT (AUTO) 5.8 K/uL (4.3-11.0)
[2025-03-27 05:13] LABS: CREATINE KINASE, TOTAL 38.0 U/L (26-192)
[2025-03-27 05:20] LABS: ASPARTATE AMINOTRANSFERASE 18.0 U/L (15-37); CALCIUM, SERUM 9.5 mg/dL (8.5-10.1); CREATININE 3.0 mg/dL (0.6-1.3); PHOSPHORUS 3.7 mg/dL (2.5-4.9); SODIUM SERUM 141.0 mmol/L (136-145); TOTAL PROTEIN, SERUM 5.5 g/dL (6.4-8.2); UREA NITROGEN, BLOOD 35.0 mg/dL (7-18)
[2025-03-27 07:43] LABS: APPEARANCE,URINE CLEAR (CLEAR); BLOOD, URINE TRACE-INTA Ery/uL (NEGATIVE); LEUKOCYTE ESTERASE ,URINE NEGATIVE (NEGATIVE); NITRITE, URINE NEGATIVE (NEGATIVE); UGLUCOSE TRACE mg/dL (NEGATIVE)
[2025-03-27 07:47] LABS: ADD URINE CULTURE NO; SQUAMOUS EPITHELIAL CELL,UR Few /HPF (None Seen)
[2025-03-27 08:26] LABS: EOSINOPHIL,URINE None Seen
[2025-03-27 08:33] LABS: CREATININE, URINE 27.4 MG/DL (30.0-125.0); URINE SODIUM, RANDOM 60.0 mmol/l (40-220); URINE TOTAL PROTEIN 252.5 mg/dL (0-11.9)
[2025-03-27] MEDS: ASPIRIN 81 MG TAB.CHEW PO SCH (09:00)
[2025-03-27] MEDS ORDERED: ALBU18HF2 INH (10:03)
[2025-03-27] MEDS ORDERED: AZIT250T13 PO (10:03)
[2025-03-27] MEDS: ALBUTEROL HALF STRENGTH 1.25 MG/3 ML VIAL.NEB NEB SCH (10:30)
[2025-03-27] MEDS: IPRATROPIUM NEB FS 0.5 MG/2.5 ML AMPUL.NEB NEB SCH (10:30)
[2025-03-28 06:07] LABS: PTH, INTACT 134 pg/mL (15-65)
[2025-03-30 10:12] LABS: *SPE A/G RATIO 1.2 (0.7-1.7); *SPE ALBUMIN 2.7 g/dL (2.9-4.4); *SPE ALPHA-1-GLOBULIN 0.3 g/dL (0.0-0.4); *SPE ALPHA-2-GLOBULIN 0.9 g/dL (0.4-1.0); *SPE BETA GLOBULIN 0.8 g/dL (0.7-1.3); *SPE GLOBULIN, TOTAL 2.3 g/dL (2.2-3.9); *SPE M-SPIKE Not Observed g/dL (Not Observed); *SPE PROTEIN TOTAL 5.0 g/dL (6.0-8.5); *SPEGAMMA GLOBULIN 0.4 g/dL (0.4-1.8)
== END 2025-03-27 14:00 | disposition home or self-care (01) | DRG 280 ==
LOC: ER 11:55 → TELE 15:36
PROVIDERS: ADMIT Internal Medicine; ATTEND Internal Medicine
DX: I13.0 Hypertensive heart and chronic kidney disease with heart failure and stage 1 through stage 4 chronic kidney disease, or unspecified chronic kidney disease (principal); I50.23 Acute on chronic systolic (congestive) heart failure; I21.A1 Myocardial infarction type 2; E87.20 Acidosis, unspecified; D63.8 Anemia in other chronic diseases classified elsewhere; M86.8X9 Other osteomyelitis, unspecified sites; N18.4 Chronic kidney disease, stage 4 (severe); E66.9 Obesity, unspecified; E03.9 Hypothyroidism, unspecified; I27.20 Pulmonary hypertension, unspecified; Z82.49 Family history of ischemic heart disease and other diseases of the circulatory system; Z98.891 History of uterine scar from previous surgery; Z79.899 Other long term (current) drug therapy; Z79.890 Hormone replacement therapy; I25.2 Old myocardial infarction; E78.5 Hyperlipidemia, unspecified; M10.9 Gout, unspecified; G47.33 Obstructive sleep apnea (adult) (pediatric); J20.8 Acute bronchitis due to other specified organisms
CPT/HCPCS: 36415; 70220-TC; 71045-TC; 80048-TC; 80053-TC; 80061-TC; 81001; 82550-TC; 82570-TC; 83735-TC; 83880; 83970; 84100-TC; 84155; 84165; 84300-TC; 84484-TC; 85025-TC; 93307-TC; G0378; J1938